=== PATIENT | female | born 1985 | race Caucasian/White ===

== ENCOUNTER 2025-06-07 09:48 | Outpatient (AMB) | payer MEDICARE, MEDICAID, SELFPAY ==
--- NOTE | 2025-06-07 09:49 | MHC.PC.OV ---
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 Accompanied by: Self / Same As Patient Allergies chlorhexidine Allergy (Mild, Verified 06/07/25 09:57) Hives meloxicam Allergy (Mild, Verified 06/07/25 09:57) Rash Medication List - Last Reconciled 06/07/25 by Dylon Cassidy MD fluocinonide 0.05% appl topical BID norgestimate-ethinyl estradiol 0.25-0.035 mg 1 tab PO DAILY omeprazole 20 mg PO DAILY paroxetine HCl 20 mg PO QAM risperidone 0.5 mg PO DAILY Tobacco use date assessed: 06/07/25 Dental Screening Dental Screen Date: 06/07/25 Did you have a dental visit in the last 12 months?: No Did you have a dental problem in the last 6 months where you did not have access to dental care?: No Was dental information given to patient?: No HPI HPI Comments History of Present Illness Details History of Present Illness The patient is a 40 year old female presenting [facility] with a primary doctor. Anxiety and Depression: She reports a history of anxiety and depression since middle school. She is currently taking paroxetine and risperidone for these conditions. She recently found a provider at [facility] to manage these medications. Gastroesophageal Reflux Disease (GERD): The patient has a diagnosis of gastroesophageal reflux disease and takes omeprazole 20 mg. Subclinical Hypothyroidism: She has a history of a thyroid tumor for which she underwent a partial thyroidectomy in her 20s, leaving her with half a thyroid. She has a diagnosis of subclinical hypothyroidism but has never been prescribed medication for it, and her blood tests have not indicated it was needed. Eczema: The patient uses topical fluocinonide for eczema. Allergies: She is allergic to meloxicam, which caused hives and vomiting, and chlorhexidine, which caused a rash. Health Maintenance: She is taking control. The patient has not had a physical or a Pap smear in a while and does not recall the date of her last one. Surgical History: - Partial thyroidectomy for a tumor, performed in her 20s. - Removal of a suspicious mole from her leg. 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 - Substance Use: She denies any history of smoking or drug use. Family History: - Her mother had ALS, which was determined to be non-hereditary. - She denies any immediate family history of cancer. Diagnostic Results: - Labs: Previous testing for anemia was negative. Past Medical History - Depression and anxiety since middle school. - Subclinical hypothyroidism following partial thyroidectomy for a tumor in her 20s. - Gastroesophageal reflux disease (GERD). - Eczema. - Recent hospitalization in March for dehydration. - Rash secondary to chlorhexidine exposure. - History of two fractures to the left arm as a child. - Reports feeling weak with hunger, but anemia has been ruled out. - Denies children. Health Maintenance - The patient is due for cervical cancer screening; she cannot recall her last Pap smear. - A referral to an [facility] DEVELOPER will be placed for a Pap smear, as per her preference. [facility] Medical History (Updated 06/07/25 @ 11:07 by Dylon Cassidy MD) Screening for malignant neoplasm of cervix Muscle spasm Allergies Eczema Subclinical hypothyroidism GERD (gastroesophageal reflux disease) Anxiety and depression Surgical History (Updated 06/07/25 @ 11:04 by Dylon Cassdiy MD) H/O partial thyroidectomy Family History (Updated 06/07/25 @ 10:00 by Abe Crockett MA) Father High cholesterol Mother No problems noted. 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 1. Little interest or pleasure in doing things: not at all 2. Feeling down, depressed, or hopeless: several days 3. Trouble falling or staying asleep, or sleeping too much: several days 4. Feeling tired or having little energy: several days 5. Poor appetite or overeating: several days 6. Feeling bad about yourself - or that you are a failure or have let yourself or your family down: more than half the days 7. Trouble concentrating on things, such as reading the newspaper or watching television: not at all 8. Moving or speaking so slowly that other people could have noticed. Or the opposite - being so fidgety or restless that you have been moving around a lot more than usual: not at all 9. Thoughts that you would be better off or of hurting yourself in some way: not at all Total score: 6 Depression Screening Interpretation: Negative Depression Screening Done: Yes Source: Developed by Drs. Sundar Person, Sindy Padgett, Curt Heller and colleagues, with an educational kota from [employer]. Thrive Questionnaire Date Thrive assessed: 06/07/25 I am a: Patient What is your living situation today?: I have a place to live, but I am worried about losing it in the future Within the past 12 months, did the food you bought not last and you didn't have the money to get more?: Often true Within the past 12 months, did you worry whether your food would run out before you got money to buy more?: Sometimes True Do you have trouble paying for medicines?: No Do you have trouble getting transportation to medical appointments?: No Do you have trouble paying your heating and electricity bill?: No Do you have trouble taking care of your child, family member or friend?: No Do you have trouble with day-to-day activities such as bathing, preparing meals, shopping, managing finances, etc.?: No Are you currently unemployed and looking for a job?: No Are you interested in more education?: I choose not to answer this question Please select the resources that you would like help with: Housing/Detention Currently or been in a relationship where the following occur: No concerns reported THRIVE Score: 3 AUDIT C Alcohol Use Questionnaire (AUDIT-C) 1. How often do you have a drink containing alcohol?: Never Total Score: 0 HILDA-7 AMB Questionnaire HILDA-7 Feeling nervous, anxious, or on edge: 1 = Several days Not being able to stop or control worryin = Nearly every day Worrying too much about different things: 2 = More than half the days Trouble relaxin = Several days Being so restless that it is hard to sit still: 2 = More than half the days Becoming easily annoyed or irritable: 2 = More than half the days Feeling afraid as if something awful might happen: 2 = More than half the days Total HILDA-7 score (0-4 normal; 5-9 mild; 10-14 moderate; 15-21 severe): 13 Source: Developed by Drs. Sundar Person, Sindy Padgett, Curt Heller and colleagues, with an educational kota from [employer]. Review of Systems Narrative Review of Systems - General: Reports feeling very weak if she neglects eating, but denies anemia. - Dermatologic: Reports a history of a rash all over her arms that persisted for a month and was caused by chlorhexidine. - Neurological: Denies current issues with her toes. - Sleep: Reports variable sleep patterns, with some days of sleeping a lot and other days not wanting to sleep. - Genitourinary/Gastrointestinal: Reports normal bowel and bladder habits. - Musculoskeletal: Reports a history of intermittent lower back spasms that have resolved; also reports residual pain in her left arm, which was fractured twice as a child, when she leans on it. 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 10-point ROS reviewed and negative except as noted in HPI Physical exam (Primary Care) Vital Signs: Last Vital Signs Temp 97.9 F 06/07/25 09:54 Pulse 85 06/07/25 09:54 Resp 16 06/07/25 09:54 BP 133/75 06/07/25 09:54 Pulse Ox 99 06/07/25 09:54 Oxygen Delivery Method Room Air 06/07/25 09:54 BMI result Body Mass Index 30.7 Tobacco/Smoking Status: Tobacco use Status Tobacco use date assessed 06/07/25 06/07/25 10:04 Patient Tobacco Use Status Never used Tobacco 06/07/25 10:04 PHQ-9: PHQ-9 Score PHQ-9: Total score 6 06/07/25 10:04 Depression Screening Interpretation: Negative Thrive Assessment: Date of Thrive Assessment Date Thrive assessed 06/07/25 06/07/25 10:04 Currently or been in a relationship where the following occur: No concerns reported Narrative Physical Exam General: Well-appearing, in no acute distress. Vital signs: Within normal limits. HEENT: Normocephalic, atraumatic. PERRLA, EOMI. Conjunctiva clear, sclera anicteric. Oropharynx clear, mucous membranes moist. TMs intact bilaterally. Neck: Supple, no lymphadenopathy, no thyromegaly, no JVD or carotid bruits. Cardiovascular: RRR, normal S1/S2, no murmurs, rubs, or gallops. Peripheral pulses 2+ and symmetric. No edema. Respiratory: Lungs clear to auscultation bilaterally, no wheezes, rales, or rhonchi. Normal effort. Abdomen: Soft, non-tender, non-distended. Normoactive bowel sounds. No hepatosplenomegaly, no masses. MSK: Full range of motion, no joint swelling or deformity. Normal gait. History of lower back spasms and previous fractures in the left arm. Skin: Warm, dry, intact. No rashes, lesions, or pallor. History of eczema and recent rash on arms. Neuro: Alert and oriented x3. Cranial nerves II-XII intact. Strength 5/5 throughout. Sensation intact. Reflexes 2+ symmetric. Normal coordination and gait. Psych: Appropriate mood and affect. Normal judgment and insight. History of anxiety and depression. Coding Level of Care Code New Pt Level 4 (88094) Add On Problem Visit Only Diagnoses Anxiety and depression F41.9; F32.A Allergies T78.40XA Subclinical hypothyroidism E03.8 H/O partial thyroidectomy Z98.890; Z90.89 GERD (gastroesophageal reflux disease) K21.9 Screening for malignant neoplasm of cervix Z12.4 Muscle spasm M62.838 Eczema L30.9 Assessment & Plan Assessment & Plan (1) Anxiety and depression: Code(s): F41.9 - Anxiety disorder, unspecified; F32.A - Depression, unspecified Category: Medical (2) Allergies: Code(s): T78.40XA - Allergy, unspecified, initial encounter Category: Medical (3) Subclinical hypothyroidism: Code(s): E03.8 - Other specified hypothyroidism Category: Medical (4) H/O partial thyroidectomy: Code(s): Z98.890 - Other specified postprocedural states; Z90.89 - Acquired absence of other organs Category: Medical (5) GERD (gastroesophageal reflux disease): Code(s): K21.9 - Gastro-esophageal reflux disease without esophagitis Category: Medical (6) Screening for malignant neoplasm of cervix: Code(s): Z12.4 - Encounter for screening for malignant neoplasm of cervix Category: Medical (7) Muscle spasm: Code(s): M62.838 - Other muscle spasm Category: Medical (8) Eczema: Code(s): L30.9 - Dermatitis, unspecified Category: Medical Plan Consent Patient was informed and verbally consented to the use of an ambient scribe for clinic note documentation during this visit. Plan 1. Health Maintenance And Establishment Of Care - As this is an initial visit, a baseline battery of blood tests will be ordered. - This will include a complete blood count (CBC), comprehensive metabolic panel (CMP), hemoglobin A1c, lipid panel, thyroid panel, B12, folate, vitamin D, urinalysis, and screening for Hepatitis B, Hepatitis C, HIV, and syphilis. - A referral will be placed for an LEAD INFORMATICA DEVELOPER consultation for cervical cancer screening, as per the patient's preference. - The patient will follow up in two weeks to discuss the results of the blood work. 2. Anxiety And Depression - The patient will continue management with her current mental health provider at [facility]. 3. Musculoskeletal Pain - The patient was advised to report if her lower back spasms return. Discussion Notes This was a new patient visit to establish care. I reviewed the patient's medical history, including her diagnoses of GERD, anxiety, depression, and subclinical hypothyroidism status-post partial thyroidectomy. I discussed the plan to obtain baseline laboratory studies, including a CBC, CMP, HbA1c, lipids, thyroid function, vitamin levels, and infectious disease screening, to get a comprehensive overview of her current health status. We also discussed the need for health maintenance, specifically cervical cancer screening. I offered to perform a Pap smear but the patient expressed a preference for a referral to an LEAD INFORMATICA DEVELOPER, which I have placed. I advised the patient to follow up in two weeks to review all lab results. Her physical exam was unremarkable. The patient agreed with the proposed plan and had no further questions. Patient Instructions - Please go to the lab to have your blood drawn for the tests we ordered today. - Schedule a follow-up appointment in two weeks to discuss your lab results. - Our office will provide you with a referral to an LEAD INFORMATICA DEVELOPER for your Pap smear. - Continue taking your current medications for GERD, anxiety, and depression as prescribed by your other doctors. - If your lower back spasms return, please let me know. Medical Decision Making The patient is a 40-year-old female presenting [facility]. Given this is our first encounter, the primary goal is to gather comprehensive baseline health information. A battery of laboratory tests was ordered for this purpose, including a CBC, CMP, lipids, HbA1c, and thyroid panel to assess for hematologic, metabolic, endocrine, and cardiovascular risk factors. The thyroid panel is particularly important given her history of subclinical hypothyroidism and partial thyroidectomy. Screening for vitamin deficiencies (B12, D, folate) and infectious diseases (Hepatitis B/C, HIV, syphilis) is part of a routine workup for a new patient. The patient is overdue for cervical cancer screening; a referral to LE[facility] IN[employer] DEVELOPER was placed per her preference. Her chronic conditions, including GERD, anxiety, and depression, appear to be managed by other providers, so the plan is to coordinate care as needed. The physical exam was benign. A follow-up in two weeks is scheduled to review results and formulate a long-term health maintenance plan. Total Time Statement 30 min Total time spent caring for the patient today includes pre-visit chart review, documentation, review of laboratory and diagnostic imaging results, medication reconciliation, medically necessary evaluation, counseling on diagnoses, care coordination, ordering appropriate tests and medications, review of tests performed by other providers, reporting test results to the patient, and communication with other healthcare providers. Orders: Orders Hepatitis B Surface Antigen Today Z13.9 - Encounter for screening, unspecified Syphilis Screen Today Z13.9 - Encounter for screening, unspecified Hepatitis C Antibody Today Z13.9 - Encounter for screening, unspecified TSH reflex Free T4 Today Z13.9 - Encounter for screening, unspecified HIV Ab/Ag Today Z13.9 - Encounter for screening, unspecified UA CC w/rflx Micro + Cult Today Z13.9 - Encounter for screening, unspecified Lipid Panel Today Z13.9 - Encounter for screening, unspecified Vitamin D 25-OH (D2 and D3) Today Z13.9 - Encounter for screening, unspecified Complete Blood Count Auto Diff Today Z13.9 - Encounter for screening, unspecified Comprehensive Met. Panel Today Z13.9 - Encounter for screening, unspecified Vitamin B12 and Folate Today Z13.9 - Encounter for screening, unspecified Hemoglobin A1c Today Z13.9 - Encounter for screening, unspecified Magnesium Today Z13.9 - Encounter for screening, unspecified Hepatitis B Surface Antibody Today Z13.9 - Encounter for screening, unspecified Referrals LEAD INFORMATICA DEVELOPER Referral Z12.4 - Encounter for screening for malignant neoplasm of cervix
[2025-06-07 09:54] VITALS: BP 133/75; PULSE 85; RESP 16; TEMP 36.6; O2SAT 99; BMI 30.7
== END 2025-06-07 10:25 | disposition home or self-care (01) ==
LOC: HO.HMCFMS 09:49
PROVIDERS: Visit Provider Student in an Organized Health Care Education/Training Program
DX: F41.9 Anxiety disorder, unspecified (principal); F32.A Depression, unspecified; T78.40XA Allergy, unspecified, initial encounter; E03.8 Other specified hypothyroidism; Z98.890 Other specified postprocedural states; Z90.89 Acquired absence of other organs; K21.9 Gastro-esophageal reflux disease without esophagitis; Z12.4 Encounter for screening for malignant neoplasm of cervix; M62.838 Other muscle spasm; L30.9 Dermatitis, unspecified

== ENCOUNTER 2025-06-07 09:48 | Outpatient (REF) | payer MEDICARE, MEDICAID, SELFPAY ==
[2025-06-07 13:27] LABS: MANUAL DIFF FLAG NO
[2025-06-07 13:39] LABS: Appearance Urine Clear; Glucose Urine UA Negative (Negative); PH 6.5 (5.0-9.0); Specific Gravity - Urine <= 1.005 (1.005-1.025); UMIC TRIGGER UACC YES
[2025-06-07 13:44] LABS: UACC Culture Trigger YES
[2025-06-07 13:45] LABS: Hematocrit 38.5 % (37.0-47.0); Hemoglobin 11.6 g/dl (12.0-16.0); Imm Gran Abs Auto 0.02 X10*3/uL (0.00-0.03); Imm Gran Pct Auto 0.2 % (0.0-0.4); Lymphocytes Absolute Auto 3.5 X10*3/uL (1.2-4.9); Mean Corpuscular HGB Conc 30.1 g/dl (31.0-35.0); Mean Corpuscular Hemoglobin 28.6 pg (27.0-33.0); Mean Corpuscular Volume 94.8 fL (80.0-98.0); NRBC Abs Auto 0.000 X10*3/uL (0.0-0.012); NRBC Pct Auto 0.0 /100WBC (0.0-0.2); Platelet Count 278 X10*3/uL (160-400); Red Blood Count 4.06 X10*6/uL (4.20-5.50); White Blood Count 9.2 X10*3/uL (4.8-10.8)
[2025-06-07 14:06] LABS: Alanine Aminotransferase 11 U/L (0-31); Albumin Level 4.3 g/dL (3.5-5.0); Alkaline Phosphatase 91 U/L (39-117); Anion Gap 10 (12-20); Aspartate Amino Transferase 19 U/L (5-31); Blood Urea Nitrogen 7 mg/dL (9-16); Calcium 9.2 mg/dL (8.4-10.2); Carbon Dioxide 24 mmol/L (22-29); Chloride 108 mmol/L (96-108); Cholesterol 215 mg/dL (<200); Estimated Glomerular Filt Rate > 60; HDL Cholesterol 64 mg/dL (>40); Magnesium 2.0 mg/dL (1.6-2.6); Potassium 3.6 mmol/L (3.3-5.1); Sodium 138 mmol/L (135-145); Total Protein 7.4 g/dL (6.5-8.0); Triglycerides 101 mg/dL (<150)
[2025-06-07 14:31] LABS: Folate 8.3 ng/mL (> or = 4.0); Vitamin B12 174 pg/mL (200-900)
[2025-06-07 15:11] LABS: Free T4 (Free Thyroxine) 0.83 ng/dL (0.71-1.85)
[2025-06-08 04:22] LABS: Syphilis Screen Nonreactive (Nonreactive)
[2025-06-08 05:16] LABS: HBS Num1 46.15 mIU/mL (0-7.99); HBsAGNum1 0.34 S/CO (0.00-0.99); HIV Num 1 0.08 S/CO (0.00-0.99); Hepatitis B Surface Antigen Negative (Negative); ~HepC Num1 0.18 S/CO (0.00-0.79); ~Hepatitis B Surface Antibody REACTIVE (Nonreactive); ~Hepatitis C Antibody Nonreactive (Nonreactive)
[2025-06-11 06:38] LABS: Vitamin D 25-OH, D2 <4 ng/mL; Vitamin D 25-OH, D3 22 ng/mL; Vitamin D 25-OH, Total 22 ng/mL (30-100)
== END 2025-06-07 09:49 | disposition home or self-care (01) ==
LOC: HO.HKASLDS 09:48
PROVIDERS: PCP Student in an Organized Health Care Education/Training Program; Visit Provider Student in an Organized Health Care Education/Training Program
DX: Z12.4 Encounter for screening for malignant neoplasm of cervix (principal); Z13.9 Encounter for screening, unspecified; F32.A Depression, unspecified; F41.9 Anxiety disorder, unspecified; T78.40XA Allergy, unspecified, initial encounter; E03.8 Other specified hypothyroidism; K21.9 Gastro-esophageal reflux disease without esophagitis; M62.838 Other muscle spasm; L30.9 Dermatitis, unspecified; Z98.890 Other specified postprocedural states; Z90.89 Acquired absence of other organs
CPT/HCPCS: 36415; 80053; 80061; 81001; 82306; 82607; 82746; 83036; 83735; 84439; 84443; 85025; 86706; 86780; 86803; 87086; 87340; 87389; 96127; 99202